=== PATIENT | male | born 2000 | race Caucasian/White ===

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

== ENCOUNTER 2020-04-04 08:51 | Emergency (ER) | payer OTHER ==
[~2020-04-04] VITALS: Ht 182.9 cm; Wt 72.6 kg
[~2020-04-04 08:51] MED LIST: HYDROCODON-ACE1 EAC8 PO; KEFLEX500 M2 PO
[2020-04-04 09:15] LABS: ABSOLUTE EOSINOPHILS 0.1 thou/uL (0.0-0.7); ABSOLUTE LYMPHOCYTES 3.6 thou/uL (0.8-5.3); ABSOLUTE MONOCYTES 0.5 thou/uL (0.0-1.2); BASOPHILS 0.7 %; EOSINOPHILS 1.5 %; HEMATOCRIT 44.4 % (42.0-52.0); HEMOGLOBIN 15.8 gm/dL (14.0-18.0); LYMPHOCYTES 49.1 %; MCH 30.7 pg (26.0-34.0); MCHC 35.6 g/dL (28.0-37.0); MCV 86.1 fL (80.0-100.0); MONOCYTES 7.5 %; MPV 8.5 fl. (7.2-11.1); NUCLEATED RBCS 0 /100WBC; PLATELET COUNT* 257 thou/uL (150-400); POLYS 41.2 %; RBC 5.16 mil/uL (4.50-6.00); RDW-CV 12.9 % (10.5-14.5); WBC 7.2 thou/uL (4.0-11.0)
[2020-04-04 09:31] LABS: CALCIUM 9.3 mg/dL (8.5-10.1); CREATININE 1.2 mg/dL (0.6-1.3)
[2020-04-04 09:38] LABS: ALBUMIN 4.5 g/dL (3.4-5.0); TOTAL BILIRUBIN 1.7 mg/dL (<0.1-1.0); TOTAL PROTEIN 7.3 g/dL (6.4-8.2)
[2020-04-04] MEDS ORDERED: NORCO 5-325 TA1 EAC2 PO (10:19)
[2020-04-04] MEDS ORDERED: CIPROFLOXACIN500 M1 PO (10:19)
[2020-04-04] MEDS ORDERED: FLOMAX0.4 MG PO (10:19)
[2020-04-04 10:30] LABS: ICTOTEST (BILI CONFIRMATORY) Positive (Negative); URINE BILIRUBIN 2+ (Negative); URINE BLOOD 3+ (Negative); URINE CLARITY SL CLOUDY; URINE COLOR BROWN; URINE GLUCOSE-RANDOM NEGATIVE (Negative); URINE KETONES TRACE (Negative); URINE LEUKOCYTES-REFLEX NEGATIVE (Negative); URINE NITRITE-REFLEX POSITIVE (Negative); URINE PROTEIN 2+ (Negative); URINE SPECIFIC GRAVITY >= 1.030 (1.005-1.030)
[2020-04-04 10:35] LABS: BACTERIA-REFLEX 1-9 Few /HPF (None Seen); SQUAMOUS 0-3 Few /LPF (0-3); URINE RBC >20 Many /HPF (0-2); URINE WBC-REFLEX 6-15 Few /HPF (0-5)
[2020-04-04 10:36] LABS: CASTS None Seen /LPF (None Seen); CRYSTALS None Seen /LPF (None Seen); MUCUS >6 Heavy strn/LPF (None Seen)
[2020-04-04 11:10] VITALS: BP 116/61
== END 2020-04-04 11:00 | disposition home or self-care (01) ==
LOC: M.ERS 08:51
PROVIDERS: Family Medicine
DX: N20.0 Calculus of kidney (principal); Z90.89 Acquired absence of other organs